=== PATIENT | male | born 1960 | race Caucasian/White ===

== ENCOUNTER 2023-10-19 15:21 | Outpatient (CLI) | payer MEDICARE, OTHER ==
[2023-10-19 16:57] LABS: Hematocrit 45.3 % (38.8-50.0); Hemoglobin 15.4 g/dL (13.5-17.5)
[2023-10-19 17:25] LABS: Anion Gap 10 mmol/L (10-20); BUN (Urea Nitrogen) 20 mg/dL (8.4-25.7); Calc. Creatinine Clearance 0 mL/min (70-130); Calcium 8.9 mg/dL (7.8-10.44); Carbon Dioxide 22 mmol/L (23-31); Chloride 109 mmol/L (98-107); Estimated GFR 100; Glucose 87 mg/dL (80-115); Potassium 4.3 mmol/L (3.5-5.1); Sodium 137 mmol/L (136-145)
== END 2023-10-19 15:22 | disposition home or self-care (01) ==
LOC: LABBT 15:21
PROVIDERS: ATTEND Otolaryngology Plastic Surgery within the Head & Neck
DX: Z01.818 Encounter for other preprocedural examination (principal)
CPT/HCPCS: 80048; 85014; 85018; 93005; 93010

== ENCOUNTER 2023-10-20 07:47 | Day surgery (SDC) | payer MEDICARE, OTHER ==
[2023-10-19 09:35] VITALS: BMI 23.0
[2023-10-20] MEDS ORDERED: Lidocaine 1% MPF 2 ML VIAL ONE (08:30)
[2023-10-20] MEDS ORDERED: Oxymetazoline HCl 0.05% (30 ML BOT) ONE (08:30)
[2023-10-20] MEDS ORDERED: Midazolam HCl 2 mg/2 ml Vial ONE (09:16)
[2023-10-20] MEDS ORDERED: PROPOFOL 40 ML ONE (09:16)
[2023-10-20] MEDS ORDERED: fentaNYL PF 100 MCG/2 ML SYRINGE ONE (09:16)
[2023-10-20] MEDS ORDERED: Dexamethasone 20 MG/5 ML VIAL ONE (09:17)
[2023-10-20] MEDS ORDERED: Lidocaine 1% PF 5 ML VIAL ONE (09:17)
[2023-10-20] MEDS ORDERED: Ondansetron PF 4 MG/2 ML Vial ONE (09:17)
[2023-10-20] MEDS ORDERED: Lidocaine 1% (PF) 30 ML VIAL ONE (09:18)
[2023-10-20] MEDS ORDERED: PHENYLEPHRINE-NS 100 MCG/ML 10 ML SYRINGE ONE (10:12)
== END 2023-10-20 12:03 | disposition home or self-care (01) ==
LOC: SDC 07:47
PROVIDERS: ATTEND Otolaryngology Plastic Surgery within the Head & Neck
PROC: 09QT4ZZ Repair Left Frontal Sinus, Percutaneous Endoscopic Approach (ICD-10-PCS; principal; 2023-10-20)
PROC: 09QW4ZZ Repair Right Sphenoid Sinus, Percutaneous Endoscopic Approach (ICD-10-PCS; 2023-10-20)
PROC: 09QX4ZZ Repair Left Sphenoid Sinus, Percutaneous Endoscopic Approach (ICD-10-PCS; 2023-10-20)
PROC: 09QQ4ZZ Repair Right Maxillary Sinus, Percutaneous Endoscopic Approach (ICD-10-PCS; 2023-10-20)
PROC: 09QR4ZZ Repair Left Maxillary Sinus, Percutaneous Endoscopic Approach (ICD-10-PCS; 2023-10-20)
PROC: 09QS4ZZ Repair Right Frontal Sinus, Percutaneous Endoscopic Approach (ICD-10-PCS; 2023-10-20)
PROC: 09BL8ZZ Excision of Nasal Turbinate, Via Natural or Artificial Opening Endoscopic (ICD-10-PCS; 2023-10-20)
DX: J34.3 Hypertrophy of nasal turbinates (principal); J32.4 Chronic pansinusitis; J34.89 Other specified disorders of nose and nasal sinuses; K21.9 Gastro-esophageal reflux disease without esophagitis; Z88.0 Allergy status to penicillin; Z79.899 Other long term (current) drug therapy
CPT/HCPCS: J1100; J2001; J2250; J2405; J2704